=== PATIENT | male | born 1995 | race Caucasian/White ===

== ENCOUNTER 2017-01-06 11:17 | Emergency (ER) | payer OTHER ==
[~2017-01-06] VITALS: Ht 180.3 cm; Wt 92.1 kg
[2017-01-06 11:20] VITALS: TEMP 37.2; Ht 180.3 cm; Wt 92.1 kg
[2017-01-06] MEDS ORDERED: ONDANSETRON INJ 2 MG/ML 2 ML VIAL IV STA (11:47)
[2017-01-06] MEDS ORDERED: SODIUM CHLORIDE 0.9% 1000ML 1,000 ML IV STA ×2 (11:47)
[2017-01-06 12:21] LABS: HEMATOCRIT 41.3 % (42-52); MEAN CELL VOLUME 84.8 fL (80-100); MEAN CORPUSCULAR HEMOGLOBIN 30.4 pg (25-34); MEAN CORPUSCULAR HGB CONC 35.8 g/dl (32-36); MEAN PLATELET VOLUME 9.1 fL (7.4-10.4); PLATELET COUNT 178 K/uL (130-400); RED BLOOD COUNT 4.87 M/uL (4.7-6.1); WHITE BLOOD COUNT 8.12 K/uL (4.8-10.8)
[2017-01-06 12:28] LABS: BUN/CREATININE RATIO 17.5 (10-20); CALCIUM 9.1 mg/dl (8.5-10.1); POTASSIUM 4.2 mmol/L (3.5-5.1)
[2017-01-06 12:31] LABS: ALB/GLOB RATIO 1.4 (0.9-2)
[2017-01-06 12:44] LABS: COMPLETE YES; EOS % 0.1 %; IG% 0.1 %; LYMPH % 3.6 %; LYMPH ABS # 0.29 K/uL (1.2-3.4); MONO % 4.1 %; NEUT % 92.1 %
--- NOTE | 2017-01-06 13:00 | DIAGNOSTIC IMAGING REPORT ---
PA CHEST RADIOGRAPH AND UPRIGHT AND SUPINE AP RADIOGRAPHS OF THE ABDOMEN CLINICAL HISTORY: Vomiting. COMPARISON STUDY: Chest radiograph March 29, 2015 PA FINDINGS: Lung volumes are normal. Lungs are clear. There is no pneumothorax or pleural effusion. There is no evidence of pneumomediastinum. Cardiac size is normal. Mediastinal contours are normal. There is no free air. Bowel gas pattern is normal. IMPRESSION: 1. No free air or evidence of bowel obstruction. 2. No acute cardiopulmonary findings. Electronically signed by: Jay Miller M.D. 01/06/2017 12:58 PM Dictated Date/Time: 01/06/2017 12:58 PM
[2017-01-06] MEDS ORDERED: ONDANSETRON HOME PACK 4MG OD TAB PO ONE (14:15)
[2017-01-06] MEDS ORDERED: ONDA4TAB10 SL (14:19)
--- NOTE | 2017-01-06 14:20 | EMERGENCY ROOM VISIT NOTE ---
History First contact with patient: 11:39 Chief Complaint: VOMITING Stated Complaint: FEVER,VOMITING History of Present Illness The patient is a 21 year old male who presents to the Emergency Room with complaints of vomiting which began last night. The patient reports that he consumed 6-7 beers and ate pizza, and soon after developed vomiting. He has had approximately 20 episodes of vomiting since then. He reports some abdominal pain, especially after vomiting. The abdominal pain is diffuse. He denies any changes in bowel movements. He is unable to keep any foods or fluids down due to the nausea and vomiting. He rates his discomfort an 8/10. He denies any fevers/chills, chest pain, shortness of breath, bodyaches, or urinary symptoms. Review of Systems A complete 10-point Review of Systems was discussed with the patient, with pertinent positives and negatives listed in the History of Present Illness. All remaining Review of Systems questions can be considered negative unless otherwise specified. Past Medical/Surgical History Medical Problems: (1) Closed head injury Family History Cancer Social History Smoking Status: Never Smoker Alcohol Use: occasionally Drug Use: none Marital Status: single Housing Status: lives with roommate Occupation Status: BRAIN student Current/Historical Medications Scheduled Ondasetron Odt (Zofran Odt), 4 MG SL Q6H Allergies Coded Allergies: No Known Allergies (Unverified , 01/02/16) Physical Exam Vital Signs Date Time Temp Pulse Resp B/P Pulse Ox O2 Delivery O2 Flow Rate FiO2 01/06/17 14:21 81 18 130/64 95 Room Air 01/06/17 13:32 88 16 148/68 96 Room Air 01/06/17 11:20 37.2 101 18 115/69 93 Room Air Physical Exam VITALS: Vitals are noted on the nurse's note and reviewed by myself. Vital signs stable. GENERAL: This is a 21-year-old male, in no acute distress, nondiaphoretic, well- developed well-nourished. SKIN: Capillary reflex less than 2 seconds. HEENT: Normocephalic. PERRLA. EOMI. Nares patent. Mucous membranes moist. Neck is supple without nuchal rigidity. HEART: Regular rate and rhythm without murmurs gallops or rubs. LUNGS: Clear to auscultation bilaterally without wheezes, rales or rhonchi. ABDOMEN: Positive bowel sounds x 4. Soft, nontender to palpation. NEURO: Patient was alert and oriented to person place and time. Medical Decision & Procedures ER Provider Diagnostic Interpretation: PA CHEST RADIOGRAPH AND UPRIGHT AND SUPINE AP RADIOGRAPHS OF THE ABDOMEN FINDINGS: Lung volumes are normal. Lungs are clear. There is no pneumothorax or pleural effusion. There is no evidence of pneumomediastinum. Cardiac size is normal. Mediastinal contours are normal. There is no free air. Bowel gas pattern is normal. IMPRESSION: 1. No free air or evidence of bowel obstruction. 2. No acute cardiopulmonary findings. Laboratory Results 01/06/17 11:50 Red Blood Count 4.87, Mean Corpuscular Volume 84.8, Mean Corpuscular Hemoglobin 30.4, Mean Corpuscular Hemoglobin Concent 35.8, Mean Platelet Volume 9.1, Neutrophils (%) (Auto) 92.1, Lymphocytes (%) (Auto) 3.6, Monocytes (%) (Auto) 4.1, Eosinophils (%) (Auto) 0.1, Basophils (%) (Auto) 0.0, Neutrophils # (Auto) 7.48, Lymphocytes # (Auto) 0.29, Monocytes # (Auto) 0.33, Eosinophils # (Auto) 0.01, Basophils # (Auto) 0.00 01/06/17 11:50 Test 01/06/17 11:50 White Blood Count 8.12 K/uL (4.8-10.8) Red Blood Count 4.87 M/uL (4.7-6.1) Hemoglobin 14.8 g/dL (14.0-18.0) Hematocrit 41.3 % (42-52) Mean Corpuscular Volume 84.8 fL (80-100) Mean Corpuscular Hemoglobin 30.4 pg (25-34) Mean Corpuscular Hemoglobin Concent 35.8 g/dl (32-36) Platelet Count 178 K/uL (130-400) Mean Platelet Volume 9.1 fL (7.4-10.4) Neutrophils (%) (Auto) 92.1 % Lymphocytes (%) (Auto) 3.6 % Monocytes (%) (Auto) 4.1 % Eosinophils (%) (Auto) 0.1 % Basophils (%) (Auto) 0.0 % Neutrophils # (Auto) 7.48 K/uL (1.4-6.5) Lymphocytes # (Auto) 0.29 K/uL (1.2-3.4) Monocytes # (Auto) 0.33 K/uL (0.11-0.59) Eosinophils # (Auto) 0.01 K/uL (0-0.5) Basophils # (Auto) 0.00 K/uL (0-0.2) RDW Standard Deviation 37.0 fL (36.4-46.3) RDW Coefficient of Variation 12.0 % (11.5-14.5) Immature Granulocyte % (Auto) 0.1 % Immature Granulocyte # (Auto) 0.01 K/uL (0.00-0.02) Anion Gap 9.0 mmol/L (3-11) Est Creatinine Clear Calc Drug Dose 135.5 ml/min Estimated GFR () 124.1 Estimated GFR (Non- 107.1 BUN/Creatinine Ratio 17.5 (10-20) Calcium Level 9.1 mg/dl (8.5-10.1) Total Bilirubin 0.8 mg/dl (0.2-1) Aspartate Amino Transf (AST/SGOT) 26 U/L (15-37) Alanine Aminotransferase (ALT/SGPT) 24 U/L (12-78) Alkaline Phosphatase 52 U/L (45-117) Total Protein 7.5 gm/dl (6.4-8.2) Albumin 4.4 gm/dl (3.4-5.0) Globulin 3.1 gm/dl (2.5-4.0) Albumin/Globulin Ratio 1.4 (0.9-2) Lipase 99 U/L (73-393) Medications Administered Medications (Trade) Dose Ordered Sig/Tati Route Start Time Stop Time Status Last Admin Dose Admin Sodium Chloride 1,000 ml @ 999 mls/hr Q1H1M STAT IV 01/06/17 11:47 01/06/17 12:47 DC 01/06/17 12:20 999 MLS/HR Sodium Chloride (Nss 1000ml) 1,000 ml @ 999 mls/hr Q1H1M STAT IV 01/06/17 11:47 01/06/17 12:47 DC 01/06/17 12:21 999 MLS/HR Ondansetron HCl (Zofran Inj) 4 mg NOW STAT IV 01/06/17 11:47 01/06/17 11:49 DC 01/06/17 12:20 4 MG Ondansetron HCl (ZOFRAN ODT 4MG Home Pack) 1 homepack UD ONCE PO 01/06/17 14:15 01/06/17 14:16 DC 01/06/17 14:15 1 HOMEPACK Medical Decision Differential diagnosis includes gastroenteritis, colitis, appendicitis, cholecystitis, among others. The patient was evaluated as above. Labs were drawn and IV access was obtained. Imaging studies were performed and read by radiology as above. The patient was medicated with 2 L normal saline solution and 4 mg Zofran IV. The patient was reassessed multiple times during their stay in the emergency department and remained in stable condition. The patient is a 21-year-old male who presents today complaining of vomiting. He had no significant abdominal tenderness on examination. Labs revealed no leukocytosis, anemia or concerning electrolyte abnormalities. The patient felt much better after IV hydration and IV antiemetics. His symptoms are likely secondary to a viral gastroenteritis. He will be discharged home with a prescription of Zofran. He will return for worsening symptoms. Based on the patient's presentation, lab results, and imaging studies, I feel the patient is stable for outpatient treatment. Discharge instructions were reviewed with the patient. The patient verbalized understanding of my assessment and treatment plan and was discharged home in good condition. Impression Primary Impression: Vomiting Departure Information Dispostion Home / Self-Care Condition GOOD Prescriptions Ondasetron Odt (ZOFRAN ODT) 4 Mg Tab 4 MG SL Q6H for Nausea, #15 TAB Prov: Mckenzie Zeng .MARIBELL 01/06/17 [facility] ([facility]) Patient Instructions My [facility] Additional Instructions You have been treated in the Emergency Department for your vomiting. Laboratory results and imaging studies have ruled out any emergent causes for your abdominal pain which would warrant admission or surgery. You have been prescribed Zofran to be used for any nausea or vomiting. Take as prescribed. For pain control, you can use the following [id number] medicines (if >12 yo): - Regular strength (325mg/tab) Tylenol (acetaminophen) 2 tabs every 4-6 hours as needed. Do not exceed 12 tablets in a 24 hour period. Avoid taking more than 4 grams (4000 mg) of Tylenol per day. This includes any other sources of acetaminophen you may take on a regular basis. - Regular strength (200 mg/tab) Advil (ibuprofen) 1-2 tabs every 4-6 hours as needed. Do not exceed a dose of 3200 mg per day. Drink plenty of water and stay well hydrated. Follow-up with [facility] in 2-3 days if you have persistent symptoms. Return to the emergency department if your symptoms persist despite treatment plan outlined above or if the following symptoms occur: increased fevers, chills , worsening nausea/vomiting, blood in your stool or urine.
[2017-01-06 14:21] VITALS: BP 130/64; PULSE 81; O2SAT 95
== END 2017-01-06 14:41 | disposition home or self-care (01) ==
LOC: C.EDB 11:18
DX: R11.10 Vomiting, unspecified (principal)